=== PATIENT | male | born 1955 | race Hispanic/Latino ===

== ENCOUNTER 2022-08-18 17:50 | Emergency (ER) | payer OTHER ==
[~2022-08-18] VITALS: Ht 170.2 cm; Wt 68.0 kg
[2022-08-18] MEDS ORDERED: CEFAZOLIN SODIUM 1 GM VIAL IM SCH (19:00)
[2022-08-18] MEDS ORDERED: TETANUS/DIPHTHERIA TOXOID [ADULT] 0.5 ML VIAL IM ONE (19:00)
[2022-08-18] MEDS ORDERED: LIDOCAINE HCL 1% 20 ML VIAL ONE (21:18)
[2022-08-18] MEDS ORDERED: 0.9%NACL 1000ML 1,000 ML IV ONE (21:30)
[2022-08-18 21:46] LABS: BASOPHILS % (AUTO) 0.4 % (0.0-5.0); EOSINOPHILS % (AUTO) 0.4 % (0.0-8.0); HEMATOCRIT 39.4 % (42-54); LYMPHOCYTES % (AUTO) 10.9 % (21.0-51.0); MEAN CORPUSCULAR HEMOGLOBIN 29.6 pg (27.0-33.0); MEAN CORPUSCULAR HGB CONC 33.2 g/dL (32.0-36.0); MEAN CORPUSCULAR VOLUME 89.1 fL (79-99); MONOCYTES % (AUTO) 5.7 % (3.0-13.0); NEUTROPHILS % (AUTO) 82.1 % (40.0-77.0); PLATELET COUNT (AUTO) 243 K/uL (130-400); RED BLOOD CELL COUNT(AUTO) 4.42 MIL/uL (4.50-6.20); RED CELL DISTRIBUTION WIDTH 12.9 % (11.0-15.5); WHITE BLOOD COUNT (AUTO) 11.3 K/uL (4.8-10.8)
[2022-08-18 22:12] LABS: INR 1.51 (0.85-1.15); PROTHROMBIN TIME 16.1 SEC (9.6-11.6)
[2022-08-18 22:13] LABS: PARTIAL THROMBOPLASTIN TIME 38.6 SEC (26.3-35.5)
[2022-08-18 22:15] LABS: CREATININE 0.9 mg/dL (0.5-1.5); POTASSIUM 3.6 mmol/L (3.5-5.1)
[2022-08-18 22:27] LABS: ALBUMIN 3.7 g/dL (3.5-5.0); TOTAL PROTEIN, SERUM 7.1 g/dL (6.0-8.3)
[2022-08-18] MEDS ORDERED: ONDANSETRON 4MG INJ IVP ONE (22:30)
[2022-08-18] MEDS ORDERED: MORPHINE 4 MG SYG IM ONE (22:30)
[2022-08-18] MEDS ORDERED: CLINDAMYCIN IVPB 300MG/50ML 50 ML IV ONE (23:58)
[2022-08-19] MEDS ORDERED: CLINDAMYCIN IVPB 300MG/50ML 50 ML IV SCH
[2022-08-19 00:30] VITALS: BP 135/82
== END 2022-08-19 01:25 | disposition short-term general hospital (02) ==
LOC: EDH 17:50
DX: S02.40DA Maxillary fracture, left side, initial encounter for closed fracture (principal); S02.2XXA Fracture of nasal bones, initial encounter for closed fracture; S01.511A Laceration without foreign body of lip, initial encounter; Z20.822 Contact with and (suspected) exposure to COVID-19; I10 Essential (primary) hypertension; W55.32XA Struck by other hoof stock, initial encounter; Y93.89 Activity, other specified; Y92.89 Other specified places as the place of occurrence of the external cause; Y99.8 Other external cause status
CPT/HCPCS: 99291; 40650; 70450; 87635; 96375; 82550; 83874; 84484; 80053; 85025; 85610; 85730; 86850; 86900; 86901; 36415; 90714; 72125; 96372 ×2; 90471; 93005; 96365; C9803; J0690; J2405; J2270; J3490